=== PATIENT | female | born 1960 | race Caucasian/White ===

== ENCOUNTER 2016-11-26 23:19 | Emergency (ER) | payer BC ==
[2016-11-27] MEDS ORDERED: FAMOTIDINE IV 20 MG/2 ML VIAL IVP ONE (00:16)
[2016-11-27] MEDS ORDERED: METHYLPREDNISOLONE PF 125MG/VIAL IVP ONE (00:16)
--- NOTE | 2016-11-27 00:22 | Emergency Department Record ---
History of Present Illness - General Chief complaint: Allergic Reaction Stated complaint: RASH,BREATHING WORSENING Time Seen by Provider: 11/27/16 00:16 Source: Patient Mode of Arrival: Ambulatory Limitations: No limitations - History of Present Illness Initial Comments: 56 yo female presents to ED with a CC of facial flushing, itching, and hives after eating a steak with frankie tonight. Patient reports taking Benadryl at home which has improved her symptoms. Patient denies previous reactions to food , denies health problems at her baseline. Patient denies throat swelling or wheezing symptoms. Patient also reports recent urinary frequency symptoms that began tonight. MD Complaint: Allergic reaction, Hives, Facial swelling Onset/Timin -: Hour(s) Exposure: Food Symptoms: Facial swelling Treatment Prior to Arrival: Benadryl Previous Allergy History: None - Related Data Home Medications Medication Instructions Recorded Confirmed Last Taken Alprazolam [Alprazolam] 1 tab PO Q12HR PRN 01/13/14 11/26/16 Unknown Escitalopram Oxalate [Lexapro] 1 tab PO DAILY 01/13/14 11/26/16 01/13/14 Estradiol [Vagifem] 1 tab PO Q72HR 01/13/14 11/26/16 Unknown Previous Rx's Medication Instructions Recorded Famotidine [Pepcid] 40 mg PO DAILY #5 tablet 11/27/16 Prednisone [Prednisone 20Mg] 20 mg PO TID #12 tab 11/27/16 Allergies Allergy/AdvReac Type Severity Reaction Status Date / Time bee sting Allergy ANAPHYLAXIS Uncoded 11/26/16 23:49 Travel Screening - Travel/Exposure Within Last 30 Days Have you traveled within the last 30 days?: No Review of Systems Constitutional: Denies: Chills, Fever, Malaise, Night sweats Eyes: Denies: Eye discharge, Eye pain ENT: Denies: Congestion, Ear pain, Epistaxis Respiratory: Denies: Cough, Dyspnea Cardiovascular: Denies: Chest pain, Dyspnea on exertion Endocrine: Denies: Fatigue, Heat or cold intolerance Gastrointestinal: Denies: Abdominal pain, Nausea, Vomiting Genitourinary: Reports: Dysuria, Frequency. Denies: Hematuria, Incontinence Musculoskeletal: Denies: Arthralgia, Back pain, Gout, Joint swelling Skin: Reports: Rash. Denies: Bruising, Change in color, Change in hair/nails Neurological: Denies: Abnormal gait, Confusion, Headache, Seizure Psychiatric: Denies: Anxiety Hematological/Lymphatic: Denies: Anemia, Blood Clots Past Medical History - SOCIAL HISTORY Smoking Status: Former smoker - RESPIRATORY Hx Respiratory Disorders: No - CARDIOVASCULAR Hx Cardio Disorders: No - NEURO Hx Neuro Disorders: No - GI Hx GI Disorders: No - Hx Genitourinary Disorders: No - ENDOCRINE Hx Endocrine Disorders: No - MUSCULOSKELETAL Hx Musculoskeletal Disorders: Yes Hx Back Injury: Yes - PSYCH Hx Psych Problems: Yes Hx Anxiety: Yes - HEMATOLOGY/ONCOLOGY Hx Hematology/Oncology Disorders: No Family Medical History Any Significant Family History?: Yes Hx Anxiety: Brother/Sister Hx Depression: Brother/Sister Physical Exam - General General Appearance: Alert, Oriented x3, Cooperative, Mild distress Limitations: No limitations - Head Head exam: Atraumatic, Normocephalic Head exam detail: Other (mild facial flushing is present on examination, no hives to the face, no tongue swelling, no uvular edema present). negative: Abrasion, Contusion, Gonzalez's sign, General tenderness, Hematoma, Laceration - Eye Eye exam: Normal appearance. negative: Conjunctival injection, Periorbital swelling, Periorbital tenderness, Scleral icterus - ENT ENT exam: Normal orophraynx Ear exam: negative: Auricular hematoma, Auricular trauma Nasal Exam: negative: Active bleeding, Discharge, Dried blood, Foreign body Mouth exam: Tongue normal. negative: Drooling, Laceration, Tongue elevation Throat exam: negative: Tonsillar erythema, Tonsillomegaly, R peritonsillar mass , L peritonsillar mass - Neck Neck exam: Normal inspection. negative: Meningismus, Tenderness - Respiratory Respiratory exam: Normal lung sounds bilaterally. negative: Rales, Respiratory distress, Rhonchi, Stridor - Cardiovascular Cardiovascular Exam: Regular rate, Normal rhythm, Normal heart sounds - GI/Abdominal GI/Abdominal exam: Soft. negative: Rebound, Rigid, Tenderness - Rectal Rectal exam: Deferred - exam: Deferred - Extremities Extremities exam: Normal inspection. negative: Calf tenderness, Pedal edema, Tenderness - Back Back exam: Denies: CVA tenderness (R), CVA tenderness (L) - Neurological Neurological exam: Alert, Normal gait, Oriented X3 - Psychiatric Psychiatric exam: Normal affect, Normal mood - Skin Skin exam: Erythema, Rash. negative: Abrasion Type of lesion: negative: abrasion Distribution of rash: Chest, Face Course Vital Signs 11/26/16 11/26/16 23:38 23:45 Temperature 97.8 F Pulse Rate [ 78 78 Pulse Ox Probe] Respiratory 24 78 H Rate Blood Pressure 146/89 146/89 [Right Arm] Pulse Ox 99 99 - Reevaluation(s) Reevaluation #1: 11/27/16 00:56 UA reviewed and appears negative for infection. Reevaluation #2: 11/27/16 01:13 Patient reassessed, denies any wheezing, difficulty breathing, or throat swelling symptoms. Patient appears stable for discharge with pepcid and prednisone for her urticaria symptoms. Disposition Disposition: Discharge Clinical Impression: Urticaria Disposition: Home, Self-Care Condition: (2) Stable Instructions: Urticaria (ED) Additional Instructions: Return to ED if your symptoms worsen or if you have any concerns. Pepcid and Prednisone as directed. Benadryl as directed at home. Follow-up with your family doctor in 3-5 days as directed. Prescriptions: Famotidine [Pepcid] 40 mg PO DAILY #5 tablet Prednisone [Prednisone 20Mg] 20 mg PO TID #12 tab Forms: Patient Portal Access Time of Disposition: 01:16
[2016-11-27] MEDS ORDERED: 0.9 % SODIUM CHLORIDE 1000ML 1,000 ML IV SCH (00:30)
[2016-11-27 00:32] LABS: URINE APPEARANCE CLEAR; URINE BILIRUBIN NEGATIVE (NEGATIVE); URINE BLOOD TRACE-I (NEGATIVE); URINE COLOR YELLOW; URINE GLUCOSE (UA) NEGATIVE (NEGATIVE); URINE KETONE NEGATIVE (NEGATIVE); URINE LEUKOCYTE ESTERASE NEGATIVE (NEGATIVE); URINE NITRITE NEGATIVE (NEGATIVE); URINE PROTEIN NEGATIVE (NEGATIVE); URINE UROBILINOGEN 0.2 E.U./dL (0.20 - 1.00)
[2016-11-27 00:48] LABS: URINE EPITHELIAL CELLS 0 - 2 (FEW); URINE RBC 0 - 2 (NONE SEEN); URINE WBC 0 - 2 (0-2/hpf)
== END 2016-11-27 02:08 | disposition home or self-care (01) ==
LOC: ER 23:19
DX: L50.0 Allergic urticaria (principal)
CPT/HCPCS: 81001; 96374; 96375; 99284; J2930; J3490; J7030